=== PATIENT | male | born 1965 | race Caucasian/White ===

== ENCOUNTER 2024-02-11 02:53 | Emergency (ER) | payer BC ==
[2024-02-11 03:14] VITALS: TEMP 98.5
[2024-02-11] MEDS ORDERED: Zofran 4 MG/2 ML VIAL IV ONE (03:27)
[2024-02-11 03:33] LABS: Absolute Neutrophil Ct (ANC) 4.43 x10^3/uL (1.78-5.38); Basophil (Absolute #) 0.09 x10^3/uL (0.01-0.08); Eosinophil % 6.2 % (0.8-7.0); Eosinophil (Absolute #) 0.53 x10^3/uL (0.04-0.54); Hematocrit 49.2 % (40.1-51.0); Hemoglobin 17.3 g/dL (13.7-17.5); IMMATURE GRAN # 0.04 x10^3u/L (0.001-0.031); IMMATURE GRAN % 0.5 % (0.001-0.429); Lymphocyte (Absolute #) 2.73 x10^3/uL (1.32-3.57); Lymphocytes % 31.8 % (21.8-53.1); Mean Cell Volume 93.9 fL (79.0-92.2); Mean Corpuscular Hgb Concent. 35.2 g/dL (32.3-36.5); Mean Platelet Volume 9.8 fL (9.4-12.4); Monocyte (Absolute #) 0.76 x10^3/uL (0.30-0.82); Monocytes % 8.9 % (5.3-12.2); Neutrophil % 51.6 % (34.0-67.9); Platelet Count 216 x10^3/uL (163-337); Red Blood Count 5.24 x10^6/uL (4.63-6.08); Red Cell Distribution Width 12.6 % (11.6-14.4); White Blood Count 8.6 x10^3/uL (4.23-9.07)
--- NOTE | 2024-02-11 03:35 | ERPHSYRPT ---
- History of Present Illness Time Seen by Provider: 02/11/24 03:10 Source: patient, family Exam Limitations: no limitations Patient Subjective Stated Complaint: pt states he woke up with pain across his back and then migrated to his chest Triage Nursing Assessment: pt alert and oriented, answers questions approp. pt ambulates into room with steady gait noted. respirations nonlabored. skinw arm and dry. heart rate 92 sinus rhythm on monitor. Physician History: This is a 58-year-old white male patient who states he had sudden onset of significant back pain centrally located that woke him up out of his sleep. Patient arrives by private vehicle escorted by his who provided additional, independent history. Patient took BC powder which is 845 mg of acetyl salicylic acid prior to arrival. In addition he attempted using a "roller" to help with relieving his back pain. This did not help. The pain then radiated anteriorly and his central chest. Both his back pain and chest pain have resolved. He has never had anything like this before. Patient had a health/life screening performed in November 2023 which entails carotid ultrasounds, abdominal aortic ultrasound, 6-lead EKG and ABIs performed. Per his report, those studies were negative/normal. Patient has no abdominal pain. He has no cough. He is not short of breath. Timing/Duration: today Severity: moderate (But now resolved) Modifying Factors: Improves With: medication (BC powder) Associated Symptoms: chest pain (Resolved), other (Back pain now resolved), No shortness of breath Allergies/Adverse Reactions: No Known Drug Allergies Allergy (Verified 02/11/24 02:56) Home Medications: No Reportable Medications [No Reported Medications] 02/11/24 [History] Hx Tetanus, Diphtheria Vaccination/Date Given: No Hx Influenza Vaccination/Date Given: No Hx Pneumococcal Vaccination/Date Given: No Immunizations Up to Date: No Travel Risk - International Travel Have you traveled outside of the country in past 3 weeks: No - Emerging Infectious Disease Are you exhibiting symptoms associated with any current EIDs: No - Review of Systems Constitutional: No Symptoms Eyes: No Symptoms Ears, Nose, & Throat: No Symptoms Respiratory: No Symptoms Cardiac: Chest Pain (Now resolved) Abdominal/Gastrointestinal: No Symptoms Genitourinary Symptoms: No Symptoms Musculoskeletal: Back Pain (Now resolved) Skin: No Symptoms Neurological: No Symptoms Psychological: No Symptoms Endocrine: No Symptoms Hematologic/Lymphatic: No Symptoms Immunological/Allergic: No Symptoms All Other Systems: Reviewed and Negative - Past Medical History Pertinent Past Medical History: Yes GI Medical History: Hernia Other Medical History: u - Past Surgical History Past Surgical History: Yes Gastrointestinal: Appendectomy Musculoskeletal: Orthopedic Surgery Other Surgical History: bilat partial knee replacements - Social History Smoking Status: Current every day smoker How long have you smoked: 30 yrs Exposure to second hand smoke: No Drug Use: none - Social Determinants of Health Will the patient participate in the screening: Yes Do you worry about a steady place to live?: No Do you have any problems with any of the following?: No known problems In the past 12 months,have you had to go without utilities?: No Transportation Issues: No Has anyone in your support network made you feel unsafe?: No Have you or anyone in your house had to go without enough: No - Nursing Vital Signs Nursing Vital Signs: Initial Vital Signs Temperature 98.5 F 02/11/24 02:57 Pulse Rate 92 H 02/11/24 02:57 Respiratory Rate 16 02/11/24 02:57 Blood Pressure 147/98 02/11/24 02:57 O2 Sat by Pulse Oximetry 95 02/11/24 02:57 Pain Scale Pain Intensity 5 - Physical Exam General Appearance: no apparent distress, alert, anxiety Eye Exam: PERRL/EOMI, eyes nml inspection Ears, Nose, Throat Exam: normal ENT inspection, moist mucous membranes, tonsillar exudate Neck Exam: normal inspection, non-tender, supple Respiratory Exam: normal breath sounds, lungs clear, airway intact, No chest tenderness, No respiratory distress Cardiovascular Exam: regular rate/rhythm, normal heart sounds, normal peripheral pulses Gastrointestinal/Abdomen Exam: soft, normal bowel sounds, No tenderness, No guarding, No rebound Rectal Exam: not done Back Exam: normal inspection, normal range of motion, No CVA tenderness, No vertebral tenderness Extremity Exam: normal inspection, normal range of motion, pelvis stable Neurologic Exam: alert, oriented x 3, cooperative, 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, nml cerebellar function, nml station & gait, sensation nml Skin Exam: normal color, warm, dry Lymphatic Exam: No adenopathy SpO2 Interpretation: normal SpO2: 95 O2 Delivery: Room Air - Course Nursing assessment & vital signs reviewed: Yes EKG Interpreted by Me: RATE, Sinus Rhythm, Left [place] Deviation (Borderline), NORMAL INTERVALS, NORMAL QRS, Other (No acute ischemic changes on today's twelve-lead EKG) Ordered Tests: Active Orders 24 hr Category Date Time Status Optical Manager STAT Care 02/11/24 03:28 Active EKG-ER Only STAT Care 02/11/24 03:27 Active IV Insertion STAT Care 02/11/24 03:27 Active Pulse Oximetry (ED) STAT Care 02/11/24 03:27 Active CHEST WITH CONTRAST [CT] Stat Exams 02/11/24 03:27 Completed CBC W DIFF Stat Lab 02/11/24 03:00 Completed CMP Stat Lab 02/11/24 03:00 Completed MAGNESIUM Stat Lab 02/11/24 03:00 Completed PROTIME WITH INR Stat Lab 02/11/24 03:00 Completed TROPONIN Q4H Lab 02/11/24 03:00 Completed TROPONIN Q4H Lab 02/11/24 07:30 Ordered TROPONIN Q4H Lab 02/11/24 11:30 Ordered Medication Summary Discontinued Medications Generic Name Dose Route Start Last Admin Trade Name Freq PRN Reason Stop Dose Admin Sodium Chloride 500 mls @ 500 mls/hr 02/11/24 03:32 02/11/24 03:39 Sodium Chloride 0.9% 500 Ml IV 02/11/24 04:31 500 mls/hr .Q1H ONE Administration Sodium Chloride Confirm 02/11/24 03:36 Sodium Chloride 0.9% 500 Ml Administered 02/11/24 03:37 Dose 500 mls @ ud IV .STK-MED ONE Ondansetron HCl 4 mg 02/11/24 03:27 Ondansetron Hcl 4 Mg/2 Ml Vial IV 02/11/24 03:28 STAT ONE Lab/Rad Data: Laboratory Result Diagrams 02/11/24 03:00 02/11/24 03:00 Laboratory Results 02/11/24 02/11/24 02/11/24 Range/Units 03:00 03:00 03:00 WBC 8.6 (4.23-9.07) x10^3/uL RBC 5.24 (4.63-6.08) x10^6/uL Hgb 17.3 (13.7-17.5) g/dL Hct 49.2 (40.1-51.0) % MCV 93.9 H (79.0-92.2) fL MCH 33.0 H (25.7-32.2) pg MCHC 35.2 (32.3-36.5) g/dL RDW 12.6 (11.6-14.4) % Plt Count 216 (163-337) x10^3/uL MPV 9.8 (9.4-12.4) fL Gran % 51.6 (34.0-67.9) % Immature Gran % (Auto) 0.5 H (0.001-0.429) % Nucleat RBC Rel Count 0.0 (0.00-0.2) % Eos # (Auto) 0.53 (0.04-0.54) x10^3/uL Immature Gran # (Auto) 0.04 H (0.001-0.031) x10^3u/L Absolute Lymphs (auto) 2.73 (1.32-3.57) x10^3/uL Absolute Monos (auto) 0.76 (0.30-0.82) x10^3/uL Absolute Nucleated RBC 0.00 (0.00-0.012) x10^3u/L Lymphocytes % 31.8 (21.8-53.1) % Monocytes % 8.9 (5.3-12.2) % Eosinophils % 6.2 (0.8-7.0) % Basophils % 1.0 (0.2-1.2) % Absolute Granulocytes 4.43 (1.78-5.38) x10^3/uL Basophils # 0.09 H (0.01-0.08) x10^3/uL PT 10.3 (9.4-12.5) SECONDS INR 0.94 (0.8-3.0) Sodium 138 (135-145) mmol/L Potassium 3.9 (3.5-5.1) mmol/L Chloride 107 (98-107) mmol/L Carbon Dioxide 22 (22-30) mmol/L Anion Gap 12.6 (5-15) MEQ/L BUN 11 (9-20) mg/dL Creatinine 0.95 (0.66-1.25) mg/dL Estimated GFR 93.9 ML/MIN Glucose 106 (74-106) mg/dL Calcium 9.2 (8.4-10.2) mg/dL Magnesium 2.0 (1.6-2.3) mg/dL Total Bilirubin 0.30 (0.2-1.3) mg/dL AST 33 (17-59) U/L ALT 33 (0-50) U/L Alkaline Phosphatase 94 (38-126) U/L Troponin I < 0.012 (0.000-0.033) ng/mL Serum Total Protein 6.7 (6.3-8.2) g/dL Albumin 4.1 (3.5-5.0) g/dL - Progress Progress: improved Progress Note: 02/11/24 03:35 My medical decision making and the assignment of moderate complexity to this patient's medical issue today is based on review of the patient's past medical history, review of the patient's medication list, review patient drug allergy list, history present illness and physical findings on examination. The workup includes placement of intravenous line, CBC, CMP, PT/INR, twelve-lead EKG, troponin level, infusion of normal saline solution, CT scan of the chest with contrast. Differential diagnosis includes but is not limited to thoracic aortic abnormalities, pulmonary embolus, myocardial infarction, arrhythmia, electrolyte abnormalities 02/11/24 06:02 I interpreted the patient's laboratory data results. Based on the laboratory data results, there are no acute, emergent medical issues. CT scan of the chest with contrast was interpreted by the radiologist and I reviewed the impression. The patient states no acute intrathoracic abnormality detected Counseled pt/family regarding: lab results, diagnosis, need for follow-up, rad results Medical Desision Making - Independent Historian Additional History obtained from: Spouse - Diagnostic Testing Diagnostic test were ordered, analyzed, and reviewed by me: Yes Radiological Interpretation: Reviewed by me, Teleradiologist Report - Risk of complications Low Risk: Low risk of morbidity from additional dx testing or treatment - Departure Departure Disposition: Home Clinical Impression: Acute nonspecific chest pain with low risk of coronary artery disease, Back pain Condition: Stable Critical Care Time: No Referrals: FARZAD WELCH NP [[employer] STAFF] - Follow up/PCP as directed Additional Instructions: Call your primary care provider today, 02/11/2024, to make arrangements for follow-up appointment for further evaluation management.
[2024-02-11] MEDS ORDERED: Sodium Chloride 0.9% 500 ML 500 ML IV ONE (03:36)
[2024-02-11] MEDS: Sodium Chloride 0.9% 500 ML 500 ML IV ONE (03:39)
[2024-02-11 03:51] LABS: ALBUMIN 4.1 g/dL (3.5-5.0); ALKALINE PHOSPHATASE 94 U/L (38-126); ANION GAP 12.6 MEQ/L (5-15); BLOOD UREA NITROGEN 11 mg/dL (9-20); CHLORIDE 107 mmol/L (98-107); Calcium 9.2 mg/dL (8.4-10.2); Carbon Dioxide 22 mmol/L (22-30); Creatinine 1 0.95 mg/dL (0.66-1.25); EST GLOMERULAR FILTRATION RATE 93.9 ML/MIN; Glucose 106 mg/dL (74-106); Potassium 3.9 mmol/L (3.5-5.1); SGOT/AST 33 U/L (17-59); SGPT/ALT 33 U/L (0-50); SODIUM 138 mmol/L (135-145); TROPONIN < 0.012 ng/mL (0.000-0.033); Total Protein 6.7 g/dL (6.3-8.2)
[2024-02-11 04:11] LABS: INR 0.94 (0.8-3.0); PROTIME 10.3 SECONDS (9.4-12.5)
[2024-02-11 05:19] VITALS: BP 128/94; PULSE 70; RESP 14
--- NOTE | 2024-02-11 05:30 | XRAY ---
CLINICAL HISTORY: Back pain/chest pain COMPARISON: No TECHNIQUE: Contiguous axial images were obtained from the neck base through the upper abdomen following intravenous administration of contrast material. If IV contrast material had not been administered, the likelihood of detecting abnormalities relevant to the patient's condition would have been substantially decreased. In addition, sagittal and coronal reconstructions were performed. CT scan was performed according to ALARA (as low as reasonable achievable). FINDINGS: The lungs are clear, with no focal areas of consolidation. Small calcified subpleural nodule in lateral segment of right middle lobe. The central airways are patent. There are no pleural effusions. No pneumothorax is seen. No axillary, hilar, or mediastinal adenopathy is identified. The visualized thyroid is unremarkable. The heart, aorta, and pulmonary arteries are of normal size and configuration. No pericardial effusion is identified. Imaged portions of the upper abdomen show a small right renal cortical cyst. No aggressive appearing osseous lesions are identified. IMPRESSION: 1. No acute intrathoracic abnormality detected. Electronically Signed by: José Landa MD. (02/11/2024 05:27:24 EDT)
[2024-02-11 06:04] VITALS: O2SAT 95
== END 2024-02-11 06:10 | disposition home or self-care (01) ==
LOC: ED 02:53
DX: R07.9 Chest pain, unspecified (principal); M54.9 Dorsalgia, unspecified; Z72.0 Tobacco use
CPT/HCPCS: 36000; 36415; 71260; 80053; 83735; 84484; 85025; 85610; 93005; 93041; 94760; 99284